=== PATIENT | male | born 1965 | race Caucasian/White ===

== ENCOUNTER 2023-09-04 21:37 | Emergency (ER) | payer SELFPAY ==
[~2023-09-04] VITALS: Ht 180.3 cm; Wt 75.0 kg
[2023-09-04 21:39] VITALS: TEMP 98.5
[2023-09-04 21:51] LABS: BASO % 0.5 % (0.0-2.0); EOS # 0.2 K/mm3 (0.0-0.7); EOS % 2.2 % (0.0-4.0); GRAN # 5.3 K/mm3 (1.4-6.5); GRAN % 61.7 % (42.2-75.2); HEMATOCRIT 43.5 % (42.0-52.0); HEMOGLOBIN 14.6 g/dl (13.5-18.0); LYMPH # 2.3 K/mm3 (1.2-3.4); LYMPH % 26.4 % (20.0-51.0); MEAN CELL VOLUME 84 fl (80.0-100.0); MEAN CORPUSCULAR HEMOGLOBIN 28 pg (27-31); MEAN CORPUSCULAR HGB CONC 34 g/dl (33.0-37.0); MEAN PLATELET VOLUME 8.3 fl (7.4-10.4); MONO # 0.8 K/mm3 (0.1-0.6); MONO % 8.8 % (1.7-9.3); PLATELET COUNT 318 K/mm3 (130-400); RED BLOOD COUNT 5.17 M/mm3 (4.20-5.60); REDCELL DISTRIBUTION WIDTH-CV 13.9 % (11.5-14.5)
[2023-09-04] MEDS ORDERED: Morphine 4 MG/ML VIAL IV ONE ×2 (22:00→23:15)
[2023-09-04] MEDS ORDERED: NS 1,000 ML IV ONE (22:00)
[2023-09-04] MEDS ORDERED: Ondansetron 4 MG/2 ML VIAL IV ONE (22:00)
[2023-09-04 22:02] LABS: PROTHROMBIN TIME 11.1 SECONDS (9.7-12.8)
[2023-09-04 22:05] LABS: PARTIAL THROMBOPLASTIN TIME 33.2 SECONDS (26.0-37.0)
[2023-09-04 22:06] LABS: COLLECTION METHOD CLEAN CATCH
[2023-09-04 22:10] LABS: ALANINE AMINOTRANSFERASE 24 U/L (0-55); ALBUMIN 4.1 g/dL (3.5-5.0); ALKALINE PHOSPHATASE 68 U/L (40-150); ANION GAP 11 mmol/L (7-16); AST,SGOT 21 U/L (5-34); BILIRUBIN,TOTAL 0.3 mg/dL (0.2-1.2); BLOOD UREA NITROGEN 20 mg/dL (8-26); CHLORIDE 108 mEq/L (98-107); CREATININE, serum 1.13 mg/dL (0.72-1.25); GLUCOSE 117 mg/dL (70-99); POTASSIUM 3.9 mEq/L (3.5-4.5); SODIUM 140 mEq/L (136-145); TOTAL PROTEIN 7.6 g/dl (6.2-8.1)
[2023-09-04 22:14] LABS: ALCOHOL(ethanol),MEDICAL < 10 mg/dL (0-10)
[2023-09-04 22:16] LABS: PH 5.5 (5.0-8.5); URINE APPEARANCE CLEAR (CLEAR/HAZY); URINE BLOOD NEGATIVE (NEGATIVE); URINE COLOR YELLOW (YELLOW); URINE GLUCOSE NEGATIVE (NEGATIVE); URINE KETONE NEGATIVE (NEGATIVE); URINE NITRATE NEGATIVE (NEGATIVE); URINE PROTEIN(semi-quant) TRACE (NEGATIVE); URINE UROBILINOGEN 0.2 E.U/dL (0.2-1.0)
[2023-09-04 22:54] LABS: MUCOUS PRESENT (NOT PRESENT); URINE BACTERIA OCCASIONAL /hpf (NONE SEEN); URINE RBC NONE SEEN /hpf (0-2)
[2023-09-04 23:11] LABS: TRICYCLIC ANTIDEPRESS URINE NEGATIVE (NEGATIVE)
[2023-09-04] MEDS ORDERED: Lidocaine 1% w EPI (1:100,000) 20 ML Multi-Dose VIAL SQ ONE (23:15)
[2023-09-05] MEDS ORDERED: ZOFRAN ODT4 MG PO (00:21)
[2023-09-05] MEDS ORDERED: ROXICODONE 55 MG/TAB PO (00:21)
[2023-09-05] MEDS ORDERED: NAPROSYN500 MG PO (00:21)
[2023-09-05] MEDS ORDERED: oxyCODONE 5 MG TAB PO ONE (00:30)
[2023-09-05 01:00] VITALS: BP 152/87; PULSE 98
[2023-09-05] MEDS ORDERED: BACITRACIN TOPIC1 TU TOP (01:11)
[2023-09-05] MEDS ORDERED: CEPHALEXIN500 M1 PO (01:11)
== END 2023-09-05 01:00 | disposition home or self-care (01) ==
LOC: COL.ER 21:37
PROVIDERS: Emergency Medicine
DX: S01.81XA Laceration without foreign body of other part of head, initial encounter (principal); S60.512A Abrasion of left hand, initial encounter; S60.511A Abrasion of right hand, initial encounter; S80.212A Abrasion, left knee, initial encounter; S80.211A Abrasion, right knee, initial encounter; Z23 Encounter for immunization; V20.49XA Other motorcycle driver injured in collision with pedestrian or animal in traffic accident, initial encounter; Y93.55 Activity, bike riding; Y92.410 Unspecified street and highway as the place of occurrence of the external cause
CPT/HCPCS: J2270; J2405; J7030